=== PATIENT | female | born 1990 | race Caucasian/White ===

== ENCOUNTER 2023-07-03 17:55 | Emergency (ER) | payer OTHER ==
[2023-07-03 18:07] VITALS: BP 130/86; PULSE 101; RESP 18; TEMP 98; BMI 30.2
[2023-07-03] MEDS ORDERED: BENZOCAINE 20% 57 GM BOTTLE TP ONE (19:11)
[2023-07-03] MEDS: BENZOCAINE 20% UNIT DOSE SPRAY MM ONE (20:13)
== END 2023-07-03 20:20 | disposition left against medical advice (07) ==
LOC: JER 17:55
DX: T59.811A Toxic effect of smoke, accidental (unintentional), initial encounter (principal); X01.1XXA Exposure to smoke in uncontrolled fire, not in building or structure, initial encounter
CPT/HCPCS: 71046-TC-FY; 93005; 93010; 99284-25